=== PATIENT | male | born 2000 | race Caucasian/White ===

== ENCOUNTER 2018-12-25 18:01 | Emergency (ER) | payer OTHER ==
[~2018-12-25] VITALS: Ht 177.8 cm; Wt 68.2 kg
[2018-12-25 18:11] VITALS: BP 173/74
[2018-12-25 19:52] LABS: INFLUENZA A AMPLIFICATION NEGATIVE (NEGATIVE); INFLUENZA B AMPLIFICATION NEGATIVE (NEGATIVE)
--- NOTE | 2018-12-25 20:18 | ED PDOC ---
Post-Departure Follow-Up CHART WAS REVIEWED WHEN IT WAS TOLD TO THIS [employer] TENDER THAT THE PT LEFT WITHOUT SKYLER G SEEN. INFLUENZA SWABS WERE NEGATIVE TODAY AND THE STREP SWAB WAS ALSO NEGATIVE. NO RECOMMENDATIONS AT THIS TIME. CRISTAL FREIRE PA-C Dec 25, 2018 20:18
== END 2018-12-25 20:11 | disposition left against medical advice (07) ==
LOC: M ED 18:01
DX: Z53.29 Procedure and treatment not carried out because of patient's decision for other reasons (principal)